=== PATIENT | female | born 1940 | race Caucasian/White ===

== ENCOUNTER 2016-08-08 17:33 | Emergency (ER) | payer MEDICARE ==
[~2016-08-08] VITALS: Ht 149.9 cm; Wt 47.2 kg
[2016-08-08] MEDS ORDERED: PROM25TA (17:58)
[2016-08-08] MEDS ORDERED: ADV500INH (17:58)
[2016-08-08] MEDS ORDERED: CLON1TAB (17:58)
[2016-08-08] MEDS ORDERED: VALSART/HCTZ (17:58)
[2016-08-08] MEDS ORDERED: IBUP80TA (17:58)
[2016-08-08] MEDS ORDERED: ALBU17IN (17:58)
[2016-08-08] MEDS ORDERED: PRED20TA PO (20:30)
[2016-08-08] MEDS ORDERED: AUGMENTIN 875 MG TAB PO ONE (20:30)
[2016-08-08] MEDS ORDERED: ALBU17IN INH (20:30)
[2016-08-08] MEDS ORDERED: AUGM875T27 PO (20:30)
[2016-08-08 20:48] VITALS: BP 167/82
== END 2016-08-08 20:53 | disposition home or self-care (01) ==
LOC: M ED 18:36
DX: J01.90 Acute sinusitis, unspecified (principal); Z76.0 Encounter for issue of repeat prescription

== ENCOUNTER 2016-09-24 12:53 | Emergency (ER) | payer MEDICAID, MEDICARE ==
[~2016-09-24] VITALS: Ht 149.9 cm; Wt 45.8 kg
[~2016-09-24 12:53] MED LIST: ADV500INH; ALBU17IN; ALBU17IN INH; AUGM875T27 PO; CLON1TAB; IBUP80TA; PRED20TA PO; PROM25TA; VALSART/HCTZ
[2016-09-24] MEDS ORDERED: hydrALAZINE INJ 20 MG/ML VIAL IV ONE ×2 (14:15)
[2016-09-24] MEDS ORDERED: IPRATROPIUM 0.5MG/ALBUTEROL 2.5MG INH SOL UD 3ML (DUONEB)(J7620) NEB ONE (14:15)
[2016-09-24] MEDS ORDERED: ALBUTEROL 90 MCG/ACT 8GM HFA INHALER INH ONE (14:15)
[2016-09-24] MEDS ORDERED: methylPREDNISolone INJ 125 MG/2 ML VIAL (J2930) IV ONE (14:15)
[2016-09-24 14:42] LABS: BASO % 0.4 % (0.0-1.0); EOS # 0.2 K/mm3 (0.0-0.50); EOS % 2.9 % (0.0-3.0); LARGE UNSTAINED CELL # 0.1 K/mm3 (0.0-0.4); LARGE UNSTAINED CELL % 1.8 % (0.0-4.0); LYMPH # 1.6 K/mm3 (1.5-4.5); LYMPH % 18.3 % (24.0-44.0); MEAN CORPUSCULAR HEMOGLOBIN 32.8 pg (27.0-33.0); MEAN CORPUSCULAR HGB CONC 32.9 g/dl (32.0-36.5); MEAN CORPUSCULAR VOLUME 99.6 fl (80.0-96.0); MONO # 0.4 K/mm3 (0.0-0.8); MONO % 5.2 % (0.0-5.0); NEUTROPHILS # 5.5 K/mm3 (1.8-7.7); NEUTROPHILS % 71.3 % (36.0-66.0); PLATELET COUNT, AUTOMATED 325 k/mm3 (150-450); RED CELL DISTRIBUTION WIDTH 12.5 % (11.5-14.5); WHITE BLOOD COUNT 7.8 K/mm3 (4.0-10.0)
[2016-09-24 15:05] LABS: ANION GAP 6 MEQ/L (8-16); BLOOD UREA NITROGEN 27 MG/DL (7-18); CARBON DIOXIDE LEVEL 30 MEQ/L (21-32); CHLORIDE LEVEL 104 MEQ/L (98-107); CREATININE FOR GFR 1.47 MG/DL (0.55-1.02); GLUCOSE, FASTING 72 MG/DL (83-110); POTASSIUM SERUM 3.6 MEQ/L (3.5-5.1); SODIUM LEVEL 140 MEQ/L (136-145)
--- NOTE | 2016-09-24 16:24 | REP ---
CHEST, TWO VIEWS: REASON: Dyspnea. PRIORS: None. FINDINGS: The superior mediastinal structures are midline. The cardiac silhouette is unremarkable in size, shape, and position. The diaphragmatic surfaces of the lungs are regular, and the costophrenic angles are clear. The pulmonary fernandes are clear. The imaged osseous structures are intact. IMPRESSION: There is no acute cardiopulmonary disease. Signed by Raffy Martinez DO 09/25/2016 09:55 A
[2016-09-24 17:18] VITALS: BP 148/72
== END 2016-09-24 17:20 | disposition home or self-care (01) ==
LOC: M ED 13:43
DX: J44.1 Chronic obstructive pulmonary disease with (acute) exacerbation (principal); I10 Essential (primary) hypertension; M06.9 Rheumatoid arthritis, unspecified; Z91.14 Patient's other noncompliance with medication regimen; F17.210 Nicotine dependence, cigarettes, uncomplicated; Z79.899 Other long term (current) drug therapy; Z79.52 Long term (current) use of systemic steroids; Z79.51 Long term (current) use of inhaled steroids; Z88.1 Allergy status to other antibiotic agents; Z88.2 Allergy status to sulfonamides
CPT/HCPCS: 71020; 80048; 82550; 82553; 84484; 85025; 86140; 93041; 94640; 94760; 96374; 96375; 99284; J2930

== ENCOUNTER 2016-09-29 20:54 | Emergency (ER) | payer MEDICARE ==
[~2016-09-29] VITALS: Ht 149.9 cm; Wt 45.4 kg
[2016-09-29] MEDS ORDERED: NS 1,000 ML IV SCH (21:18)
[2016-09-29] MEDS ORDERED: ASPIRIN 81 MG CHEW TABLET PO ONE (21:30)
[2016-09-29 21:42] LABS: BASO % 0.5 % (0.0-1.0); EOS # 0.4 K/mm3 (0.0-0.50); EOS % 6.4 % (0.0-3.0); LARGE UNSTAINED CELL # 0.1 K/mm3 (0.0-0.4); LARGE UNSTAINED CELL % 1.5 % (0.0-4.0); LYMPH # 2.1 K/mm3 (1.5-4.5); LYMPH % 28.4 % (24.0-44.0); MEAN CORPUSCULAR HEMOGLOBIN 32.1 pg (27.0-33.0); MEAN CORPUSCULAR HGB CONC 33.1 g/dl (32.0-36.5); MEAN CORPUSCULAR VOLUME 96.9 fl (80.0-96.0); MONO # 0.4 K/mm3 (0.0-0.8); NEUTROPHILS # 4.1 K/mm3 (1.8-7.7); NEUTROPHILS % 57.3 % (36.0-66.0); PLATELET COUNT, AUTOMATED 316 k/mm3 (150-450); RED CELL DISTRIBUTION WIDTH 12.6 % (11.5-14.5); WHITE BLOOD COUNT 7.1 K/mm3 (4.0-10.0)
[2016-09-29 22:07] LABS: ALBUMIN 3.4 GM/DL (3.2-5.2); ALBUMIN/GLOBULIN RATIO 1.13 (1.00-1.93); ALKALINE PHOSPHATASE 73 U/L (45-117); ALT/SGPT 19 U/L (12-78); ANION GAP 8 MEQ/L (8-16); AST/SGOT 18 U/L (15-37); BILIRUBIN,DIRECT 0.1 MG/DL (0.0-0.2); BILIRUBIN,TOTAL 0.5 MG/DL (0.2-1.0); BLOOD UREA NITROGEN 26 MG/DL (7-18); CALCIUM LEVEL 8.9 MG/DL (8.8-10.2); CARBON DIOXIDE LEVEL 28 MEQ/L (21-32); CHLORIDE LEVEL 103 MEQ/L (98-107); CREATININE FOR GFR 1.46 MG/DL (0.55-1.02); GLOMERULAR FILTRATION RATE 37.3 (>39); GLUCOSE, FASTING 88 MG/DL (83-110); POTASSIUM SERUM 3.5 MEQ/L (3.5-5.1); SODIUM LEVEL 139 MEQ/L (136-145); TOTAL PROTEIN 6.4 GM/DL (6.4-8.2)
[2016-09-29 22:16] LABS: INR 0.97
[2016-09-29] MEDS: NITROGLYCERIN 0.4 MG SUBL TABLET SL PRN ×2 (22:22→22:49)
[2016-09-29 22:49] VITALS: BP 178/88
[2016-09-30] MEDS ORDERED: ALBUTEROL 90 MCG/ACT 8GM HFA INHALER INH ONE (04:30)
[2016-09-30 05:18] VITALS: BP 112/58
--- NOTE | 2016-09-30 12:43 | REP ---
CHEST, PORTABLE: AP portable view of the chest is performed and compared to prior study of 09/24/2016. There is mild bibasilar fibroatelectatic change. There is no evidence of acute infiltrate. The heart is normal in size. The mediastinal silhouette is unchanged. IMPRESSION: Mild bibasilar fibroatelectatic change without evidence of acute infiltrate. Signed by Orville Hanks MD 09/30/2016 07:48 P
--- NOTE | 2016-09-30 16:44 | ECGEPIP ---
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
--- NOTE | 2016-09-30 16:46 | ECGEPIP ---
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
== END 2016-09-30 05:19 | disposition home or self-care (01) ==
LOC: M ED 20:56
DX: R07.89 Other chest pain (principal); R06.02 Shortness of breath; J44.9 Chronic obstructive pulmonary disease, unspecified; K27.9 Peptic ulcer, site unspecified, unspecified as acute or chronic, without hemorrhage or perforation; F17.200 Nicotine dependence, unspecified, uncomplicated; Z88.1 Allergy status to other antibiotic agents; Z88.2 Allergy status to sulfonamides; Z79.899 Other long term (current) drug therapy

== ENCOUNTER → 2016-10-05 | Outpatient (REF) | payer MEDICARE ==
[2016-10-05 18:13] LABS: ALBUMIN 3.7 GM/DL (3.2-5.2); ALBUMIN/GLOBULIN RATIO 1.32 (1.00-1.93); ALKALINE PHOSPHATASE 77 U/L (45-117); ALT/SGPT 14 U/L (12-78); ANION GAP 6 MEQ/L (8-16); AST/SGOT 17 U/L (15-37); BILIRUBIN,TOTAL 0.4 MG/DL (0.2-1.0); BLOOD UREA NITROGEN 20 MG/DL (7-18); CALCIUM LEVEL 9.2 MG/DL (8.8-10.2); CARBON DIOXIDE LEVEL 31 MEQ/L (21-32); CHLORIDE LEVEL 106 MEQ/L (98-107); CREATININE FOR GFR 1.42 MG/DL (0.55-1.02); GLOMERULAR FILTRATION RATE 38.5 (>39); GLUCOSE, FASTING 72 MG/DL (83-110); MAGNESIUM LEVEL 2.1 MG/DL (1.8-2.4); POTASSIUM SERUM 4.2 MEQ/L (3.5-5.1); SODIUM LEVEL 143 MEQ/L (136-145); TOTAL PROTEIN 6.5 GM/DL (6.4-8.2)
[2016-10-05 18:20] LABS: BASO % 0.6 % (0.0-1.0); EOS # 0.3 K/mm3 (0.0-0.50); EOS % 3.4 % (0.0-3.0); LARGE UNSTAINED CELL # 0.2 K/mm3 (0.0-0.4); LARGE UNSTAINED CELL % 2.1 % (0.0-4.0); LYMPH # 2.1 K/mm3 (1.5-4.5); LYMPH % 21.9 % (24.0-44.0); MEAN CORPUSCULAR HEMOGLOBIN 32.5 pg (27.0-33.0); MEAN CORPUSCULAR HGB CONC 32.5 g/dl (32.0-36.5); MEAN CORPUSCULAR VOLUME 99.8 fl (80.0-96.0); MONO # 0.7 K/mm3 (0.0-0.8); MONO % 8.3 % (0.0-5.0); NEUTROPHILS # 5.5 K/mm3 (1.8-7.7); NEUTROPHILS % 63.7 % (36.0-66.0); PLATELET COUNT, AUTOMATED 379 k/mm3 (150-450); RED CELL DISTRIBUTION WIDTH 12.7 % (11.5-14.5); WHITE BLOOD COUNT 8.6 K/mm3 (4.0-10.0)
== END ==
LOC: M SFHCPLAZ 15:33
PROVIDERS: ATTEND Physician Assistant Medical
DX: I12.9 Hypertensive chronic kidney disease with stage 1 through stage 4 chronic kidney disease, or unspecified chronic kidney disease (principal); N18.3 Chronic kidney disease, stage 3 (moderate); M06.9 Rheumatoid arthritis, unspecified
CPT/HCPCS: 36415; 80053; 83735; 85025; 86431; G0463